=== PATIENT | female | born 1970 | race Caucasian/White ===

== ENCOUNTER → 2017-08-04 | Outpatient (CLI) | payer BC | END | disposition home or self-care (01) | LOC: MRI 10:25 | DX: M25.552 Pain in left hip (principal) | CPT/HCPCS: 73721 ==

== ENCOUNTER → 2020-03-09 | Outpatient (CLI) | payer BC ==
--- NOTE | 2020-03-09 12:55 | RAD ---
MR#: [id number] Date of Study: 03/09/2020 Ordering Physician: SE MARTE, Referring Physician: SE MARTE, Tech: Seamus Oviedo MBA, RDMS, RVT, RDCS, RTR APPROVED REPORT Patient Location: OUT-PATIENT Laterality:Bilateral Indications stenosis Doppler Spectral Velocity Analysis Right Left pCCA 129/33 cm/spCCA 145/31 cm/s mCCA 146/31 cm/smCCA 140/40 cm/s dCCA 113/31 cm/sdCCA 117/34 cm/s Bulb 95/24 cm/sBulb 84/32 cm/s ECA 108/ cm/sECA 89/ cm/s pICA 121/31 cm/spICA 100/33 cm/s Qamar 87/27 cm/smICA 95/30 cm/s dICA 89/35 cm/sdICA 81/33 cm/s Vert. 54/ cm/sVert. 66/ cm/s Subcl. 104/ cm/sSubcl. 132/ cm/s ICA/CCA 0.83ICA/CCA 0.69 Findings Grayscale images of the bilateral common carotid vessels demonstrate moderate diffuse atherosclerosis . Based on velocities and spectral waveforms there is likely a 50% stenosis involving the common car otid arteries. Bilateral internal carotid arteries did not demonstrate any significant obstructive d isease and are quantified at 0 to less than 50% stenosis. Normal ICA to CCA ratios bilaterally. Shanta tebral velocities are antegrade and within normal limits. Critical Notification Critical Value: No <Conclusion> 1. Moderate bilateral COMMON CAROTID arterial disease at approximately 50% based on velocity criteri a 2. No significant internal carotid arterial disease Signed by : Walt Menjivar, Electronically Approved : 03/09/2020 12:54:34
--- NOTE | 2020-03-09 15:14 | CARD ---
MR#: [id number] Date of Study: 03/09/2020 Ordering Physician: SE MARTE, Referring Physician: SE MARTE, Tech: Jazmin Luke MARCO APPROVED REPORT EXAM: Two-dimensional and M-mode echocardiogram with Doppler and color Doppler. Other Information Quality : Good INDICATION Carotid Artery Stenosis 2D DIMENSIONS RVDd2.8 (2.9-3.5cm)Left Atrium(2D)2.9 (1.6-4.0cm) IVSd0.6 (0.7-1.1cm)Aortic Root(2D)2.6 (2.0-3.7cm) LVDd4.7 (3.9-5.9cm)LVOT Diameter2.0 (1.8-2.4cm) PWd0.6 (0.7-1.1cm)LVDs3.5 (2.5-4.0cm) FS (%) 26.2 %SV52.8 ml LVEF(%)51.4 (>50%) Aortic Valve AoV Peak Janak.113.0cm/sAoV VTI22.3cm AO Peak GR.5.1mmHgLVOT VTI 16.56cm AO Mean GR.3mmHgAVA (VTI)2.35cm2 Mitral Valve MV E Zgsnovzl75.4cm/sMV DECEL [id number] MV A Imbrofyz97.7cm/sE/A Ratio0.8 TDI Lateral E' P. V13.97cm/sMedial E' P. V3.99cm/s E/Lateral E'4.4E/Medial E'15.4 Tricuspid Valve TR P. Epilgoaf326wf/sRAP DOBPLKCV5jxMs TR Peak Gr.[id number] Pulmonary Vein S1 Frovpyyc56.9cm/sS2 Shhlihoa02.29cm/s D2 Kqeckfmm54.3cm/s LEFT VENTRICLE The left ventricle is normal size. There is normal left ventricular wall thickness. Left ventricle sy stolic function is normal. The Ejection Fraction is 55%. There is normal LV segmental wall motion. Tr ansmitral Doppler flow pattern is Grade I-abnormal relaxation pattern. RIGHT VENTRICLE The right ventricle is normal size. The right ventricular systolic function is normal. ATRIA The left atrium size is normal. The right atrium size is normal. The interatrial septum is intact wit h no evidence for an atrial septal defect or patent foramen ovale as noted on 2-D or Doppler imaging. AORTIC VALVE The aortic valve is normal in structure and function. Doppler and Color Flow revealed no significant aortic regurgitation. There is no significant aortic valvular stenosis. MITRAL VALVE The mitral valve is normal in structure and function. There is no evidence of mitral valve prolapse. There is no mitral valve stenosis. Doppler and Color-flow revealed trace mitral regurgitation. TRICUSPID VALVE The tricuspid valve is normal in structure and function. Doppler and Color Flow revealed trace tricus pid regurgitation. The PA pressure was estimated at 21 mmHg. There is no tricuspid valve stenosis. PULMONIC VALVE The pulmonary valve is normal in structure and function. Doppler and Color Flow revealed trace pulmon ic valvular regurgitation. There is no pulmonic valvular stenosis. GREAT VESSELS The aortic root is normal in size. The ascending aorta is not well seen. The IVC is normal in size an d collapses >50% with inspiration. PERICARDIAL EFFUSION There is no evidence of significant pericardial effusion. Critical Notification Critical Value: No <Conclusion> Left ventricle systolic function is normal. The Ejection Fraction is 55%. There is normal LV segmental wall motion. Transmitral Doppler flow pattern is Grade I-abnormal relaxation pattern. Trace mitral regurgitation. Trace tricuspid regurgitation. The PA pressure was estimated at 21 mmHg. There is no evidence of significant pericardial effusion. Signed by : Se Marte, Electronically Approved : 03/09/2020 15:13:52
== END ==
LOC: US 09:41
PROVIDERS: ATTEND Internal Medicine Cardiovascular Disease
DX: I65.23 Occlusion and stenosis of bilateral carotid arteries (principal)
CPT/HCPCS: 93306; 93880